=== PATIENT | female | born 1945 | race Caucasian/White ===

== ENCOUNTER 2023-06-12 16:38 | Outpatient (CLI) | payer MEDICARE, OTHER | END 2023-06-12 23:59 | disposition critical access hospital (66) | LOC: EMS 16:38 | DX: S89.92XA Unspecified injury of left lower leg, initial encounter (principal); S69.92XA Unspecified injury of left wrist, hand and finger(s), initial encounter; W18.39XA Other fall on same level, initial encounter; Y93.01 Activity, walking, marching and hiking; Y92.008 Other place in unspecified non-institutional (private) residence as the place of occurrence of the external cause | CPT/HCPCS: A0425; A0429 ==

== ENCOUNTER 2023-06-12 17:17 | Emergency (ER) | payer MEDICARE, OTHER ==
--- NOTE | 2023-06-12 17:20 | ED Physician Documentation ---
PD HPI LOWER EXT INJURY - Stated complaint Stated Complaint: LT LOWER LEG INJ - History obtained from History obtained from: Patient, EMS - History of Present Illness PD HPI LOW EXT INJURY LOCATION: Left, Lower leg, Other (and also left wrist.) Type of injury: Twist (she was walking on deck trusses that were exposed as new deck being built. She slipped and fell with her foot going between boards and she fell forward, causing torque/bend of lower leg. Aprupt pain. 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 - Present Medications Home Medications: Ambulatory Orders Medication Instructions Recorded Confirmed Gabapentin 600 mg PO BID 08/20/14 06/12/23 Atorvastatin Calcium 40 mg PO HS 05/19/22 06/12/23 Lisinopril/Hydrochlorothiazide 1 each PO DAILY 05/19/22 06/12/23 [Zestoretic 10-12.5 mg Tablet] Metoprolol Succinate [Toprol Xl] 25 mg PO DAILY 05/19/22 06/12/23 Prednisone [Davis] 3 mg PO DAILY 05/19/22 06/12/23 Meloxicam [Mobic] 7.5 mg PO BID 10 Days #20 tablet 06/12/23 Oxycodone HCl/Acetaminophen 1 each PO Q6H PRN #25 tablet 06/12/23 [Percocet 5-325 mg Tablet] - Allergies Allergies/Adverse Reactions: Allergies Allergy/AdvReac Type Severity Reaction Status Date / Time No Known Drug Allergies Allergy Verified 05/19/22 08:36 - Social History Does the pt smoke?: No Smoking Status: Never smoker Does the pt drink ETOH?: Yes Does the pt have substance abuse?: No - Immunizations Immunizations are current?: Yes - POLST Patient has POLST: No PD ED PE NORMAL - Vitals Vital signs reviewed: Yes - General General: Alert and oriented X 3, No acute distress, Well developed/nourished - HEENT HEENT: Atraumatic - Neck Neck: Supple, no meningeal sign, No bony TTP, No adenopathy - Cardiac Cardiac: RRR, No murmur - Respiratory Respiratory: Clear bilaterally, Other (no chestwall tenderness. ) - Abdomen Abdomen: Soft, Non tender - Back Back: No CVA TTP, No spinal TTP - Derm Derm: Normal color, Warm and dry - Extremities Extremities: Other (left lower leg in vacuum splint by EMS. Normal color and cap refill in toes. Can wiggle toes well. Left wrist with swelling and tenderness, guarded ROM at the distal radius. ) - Neuro Neuro: Alert and oriented X 3, No motor deficit, No sensory deficit, Normal speech Eye Opening: Spontaneous Motor: Obeys Commands Verbal: Oriented GCS Score: 15 Results - Vitals Vitals: Vital Signs - 24 hr 06/12/23 06/12/23 06/12/23 17:23 18:00 20:02 Temperature 36.7 C Heart Rate 81 89 73 Respiratory 20 15 16 Rate Blood Pressure 162/109 H 175/89 H 120/91 H O2 Saturation 99 98 95 06/12/23 20:33 Temperature Heart Rate 75 Respiratory 16 Rate Blood Pressure 145/97 H O2 Saturation 98 Oxygen O2 Source Room air - Rads (name of study) left tib/fib Relevant Findings:: Prelim report reviewed (comminuted fracture mid shaft tib/fib. mild angulated. ), EMP independent interpretation of test left wrist Relevant Findings:: Prelim report reviewed (no fracture), EMP independent interpretation of test (impacted fracture distal radius. ) Procedures - Splint (location) - Minor left wrist Splint applied by: Nurse Type of splint: Prefab velcro wrist Other: Patient tolerated well, No complications, Neurovascular intact left lower leg Splint applied by: Physician Type of splint: Fiberglass, Posterior, Stirrup Other: Patient tolerated well, Neurovascular intact, Other (pt has crutches at home from knee replacement 10 weeks ago.) PD Medical Decision Making - ED course Complexity details: reviewed results (tib/fib fracture. She has also left wrist paina nd swelling, with xray showing apparent impaction fracture at distal radius. Ortho looked at images and agreed. Opinion was to treat lower leg fracture nonoperatively given her prior knee replacement and the good alignment of the fracture at this time.), d/w investigations consultant (talked with Ortho ground control approach technician, and sent images for review. Agreed on lower leg fracture and wrist fracture. ) Departure - Departure Disposition: 01 Home, Self Care Clinical Impression: Tibia/fibula fracture, shaft, Wrist fracture, Accidental fall Condition: Stable Follow-Up: Aubrey Kennedy MD [Physician No Access] - Prescriptions: Meloxicam [Mobic] 7.5 mg PO BID 10 Days #20 tablet Oxycodone HCl/Acetaminophen [Percocet 5-325 mg Tablet] 1 each PO Q6H PRN #25 tablet PRN Reason: pain Comments: Keep the splint on and in place. Elevate and rest the wrist and leg to help with swelling. Ice periodically to the areas. Call your orthopedist, Dr. Kennedy, on Thursday for a follow-up appointment. Our orthopedist here felt there would likely take care of this nonoperatively with just cast given your previous knee replacement and such. However Dr. Kennedy may approach is slightly differently. This can be discussed with Dr. Kennedy in the follow-up. I presume they will want to see you in the office towards the end of the week to allow time for swelling to go down etc. Follow-up in the time frame that they suggest. Meanwhile you can use anti-inflammatory such as ibuprofen or naproxen 2-3 times daily with food. Add Tylenol every 4-6 hours if needed for pain. To that add oxycodone if needed for worse pain. I sent your prescription to [facility] in [place]. You will need to be nonweightbearing for the left leg and light use only of the left wrist and hand due to the fractures. I am prescribing a short course of narcotic pain medication for you. These are potentially dangerous and addictive medications that should be used carefully. These medications may constipate you. Take an [id number] stool softener such as docusate twice daily with plenty of water while taking these medications. If you go 24 hours without a bowel movement, take [id number] MiraLAX, per package instructions. Do not drink or drive while taking these medications. If you received narcotic or sedating medications while in the emergency department do not drive for 24 hours. Store this medication in a safe, secure place and out of reach of children. It is a violation of federal law to give or sell this medication to another person or to use in a manner other than prescribed. The ED will not refill narcotic prescriptions, including prescriptions lost or stolen. You can dispose of unwanted medications at the [facility]'s office or at several pharmacies such as [facility]. Forms: PCP List Discharge Date/Time: 06/12/23 20:44
--- NOTE | 2023-06-12 18:23 | XRAY Report ---
PROCEDURE: Tib/Fib LT INDICATIONS: Trauma TECHNIQUE: 2 views of the tibia and fibula were acquired. COMPARISON: None. FINDINGS: Bones: Left knee arthroplasty. No periprosthetic lucency to suggest loosening or infection. Comminute d fractures of the proximal one third of the tibia and fibula. There is apex medial slight angulation . There is minimal displacement/distraction. No fractures or dislocations. No suspicious bony lesion s. Soft tissues: No suspicious soft tissue calcifications or masses. IMPRESSION: Comminuted fractures of the proximal shaft of the tibia and fibula. Left knee arthroplasty is intact. Reviewed by: Adarsh Preciado MD on 06/12/2023 6:21 PM PDT Approved by: Adarsh Preciado MD on 06/12/2023 6:21 PM PDT Station ID: [id number]
--- NOTE | 2023-06-12 18:24 | XRAY Report ---
PROCEDURE: Wrist 3 View LT INDICATIONS: fall, caught self onto wrist. TECHNIQUE: 3 views of the wrist were acquired. COMPARISON: None. FINDINGS: Bones: No convincing fracture. No dislocations. No suspicious bony lesions. Advanced degenerative c hanges most pronounced at the first CMC joint. Soft tissues: No suspicious soft tissue calcifications or masses. IMPRESSION: No fracture identified. Reviewed by: Adarsh Preciado MD on 06/12/2023 6:23 PM PDT Approved by: Adarsh Preciado MD on 06/12/2023 6:23 PM PDT Station ID: [id number]
[2023-06-12] MEDS ORDERED: HYDROmorphone 1 MG/ML CARPUJECT IVP STA (19:24)
[2023-06-12] MEDS ORDERED: KETOROLAC 15 MG/ML VIAL IVP STA (19:24)
[2023-06-12] MEDS ORDERED: oxyCODONE/ACET 5/325 Prepack 4 PO STA (20:17)
[2023-06-12 20:47] VITALS: BP 145/97; O2SAT 98
== END 2023-06-12 20:44 | disposition home or self-care (01) ==
LOC: ED 17:17
DX: S82.102A Unspecified fracture of upper end of left tibia, initial encounter for closed fracture (principal); M97.12XA Periprosthetic fracture around internal prosthetic left knee joint, initial encounter; S82.832A Other fracture of upper and lower end of left fibula, initial encounter for closed fracture; X50.1XXA Overexertion from prolonged static or awkward postures, initial encounter; S52.502A Unspecified fracture of the lower end of left radius, initial encounter for closed fracture; I10 Essential (primary) hypertension
CPT/HCPCS: 29505; 73110; 73590; 96374; 99283; 99284; J1170

== ENCOUNTER 2023-08-05 11:38 | Outpatient (CLI) | payer MEDICARE, OTHER ==
--- NOTE | 2023-08-05 12:54 | XRAY Report ---
PROCEDURE: Chest 2 View X-Ray INDICATIONS: BRONCHITIS TECHNIQUE: 2 views of the chest were acquired. COMPARISON: CT chest 08/20/2014. FINDINGS: Surgical changes and devices: None. Lungs and pleura: No pleural effusions or pneumothorax. Lungs are clear. Mediastinum: Mediastinal contours appear normal. Heart size is mildly prominent. Bones and chest wall: No suspicious bony lesions. Overlying soft tissues appear unremarkable. IMPRESSION: No acute cardiopulmonary process. Reviewed by: Bren Wilkinson MD on 08/05/2023 12:53 PM PDT Approved by: Bren Wilkinson MD on 08/05/2023 12:53 PM PDT Station ID: [id number]
== END 2023-08-05 11:39 | disposition home or self-care (01) ==
LOC: DI.S 11:38
PROVIDERS: ATTEND Physician Assistant
DX: J40 Bronchitis, not specified as acute or chronic (principal)